=== PATIENT | female | born 1945 | race Caucasian/White ===

== ENCOUNTER → 2017-01-02 | Outpatient (CLI) | payer MEDICARE ==
[~2017-01-02] MED LIST: KEFLEX 500MG.500 MG PO; LEVOCETIRIZINE D5 MG PO; LOSARTAN POTASS50 MG PO; METOLAZONE2.5 MG PO; VICODIN 5/500 T1 TAB PO
--- NOTE | 2017-01-02 15:16 | RADIOLOGY REPORT PS360 ---
ARTERIAL/[id number] ULCER R FOOT ORDERING PHYSICIAN: Crissy Haas MD PATIENT AGE: 71 years TECHNIQUE: Segmental pressures obtained of both right and left leg. These are compared to brachial blood pressure to yield index at each level sampled including summary PHANI. The data sheets from the procedure are available in PACS FINDINGS Rest study only performed today No prior studies available for comparison. Blood pressures reported are in millimeters mercury. RIGHT LEG PHANI = 1.1. Brachial BP: 146 Thigh BP: 144 Calf BP: 140 Ankle PT: 156 Ankle DP : 158 Digit =116 LEFT LEG PHANI = 1.0 Brachial BPD: 134 Thigh BP: 153 Calf BP: 158 Ankle PT:152 Ankle DP: 152 Digit = 144 Pulses and waveforms: Normal IMPRESSION: The ABIs as reported above are within normal limits. Waveforms and pulses are also unremarkable.
== END ==
LOC: RT 10:51
DX: L97.511 Non-pressure chronic ulcer of other part of right foot limited to breakdown of skin (principal)